=== PATIENT | female | born 1945 | race Caucasian/White ===

== ENCOUNTER 2021-01-24 05:34 | Day surgery (SDC) | payer MEDICARE, OTHER ==
[~2021-01-24] VITALS: Ht 165.1 cm; Wt 92.7 kg
[~2021-01-24 05:34] MED LIST: LOSA50TA14 PO; MAGN400T36 PO; METO50TA4 PO; MULT-642 PO; MULT-706 PO; MV-M1LOZ PO; [UNRECOGNIZED DRUG - CODE] PO
[2021-01-24 06:16] VITALS: BP 167/88
[2021-01-24] MEDS ORDERED: VIT C PO (06:16)
[2021-01-24] MEDS ORDERED: CHLORHEXIDINE 15 ML UDC MM ONE (06:30)
[2021-01-24] MEDS ORDERED: LACTATED RINGERS 1,000 ML IV SCH (06:30)
[2021-01-24] MEDS ORDERED: LIDOCAINE/PF 1%, 30ML ONE (06:51)
[2021-01-24] MEDS ORDERED: EPINEPHRINE 1 MG/ML, 1ML ONE (06:51)
[2021-01-24] MEDS ORDERED: FENTANYL PF 250 MCG/5ML ONE (07:02)
[2021-01-24] MEDS ORDERED: PROPOFOL 50 ML ONE (07:14)
[2021-01-24] MEDS ORDERED: HALOPERIDOL 5 MG/ML IV PRN (07:30)
[2021-01-24] MEDS ORDERED: EPHEDRINE 50 MG/ML, 1ML IVPush PRN (07:30)
[2021-01-24] MEDS ORDERED: MEPERIDINE/PF 25MG/0.5ML IVPush PRN (07:30)
[2021-01-24] MEDS ORDERED: FENTANYL PF 100 MCG/2ML IV PRN (07:30)
[2021-01-24] MEDS ORDERED: LABETALOL 5MG/ML, 20ML IV PRN (07:30)
[2021-01-24] MEDS ORDERED: ACETAMINOPHEN 325 MG TABLET PO PRN (07:30)
[2021-01-24] MEDS ORDERED: hydrALAzine 20 MG/ML, 1ML IV PRN (07:30)
[2021-01-24] MEDS ORDERED: HYDROmorphone 1 MG/ML, 1ML INJ IVPush PRN (07:30)
[2021-01-24] MEDS ORDERED: METHOCARBAMOL 1,000 MG in DEXTROSE 5% 100 ML IV PRN (07:30)
[2021-01-24] MEDS ORDERED: OXYcodone 5 MG/5 ML ORAL.SOL UDC PO PRN (07:30)
[2021-01-24] MEDS ORDERED: LORazepam 2 MG/ML, 1ML IVPush PRN (07:30)
[2021-01-24] MEDS ORDERED: PROMETHAZINE 25 MG/ML, 1ML IVPush PRN (07:30)
[2021-01-24] MEDS ORDERED: ONDANSETRON 2MG/ML, 2ML IVPush PRN (07:30)
[2021-01-24] MEDS ORDERED: OXYcodone 5 MG/5 ML ORAL.SOL UDC ONE (08:02)
[2021-01-24] MEDS ORDERED: ACETAMINOPHEN 650 MG/20.3 ML UDC ONE (08:02)
[2021-01-24] MEDS ORDERED: FENTANYL PF 100 MCG/2ML ONE (08:02)
[2021-01-24] MEDS ORDERED: KETOROLAC 30 MG/1 ML ONE (16:26)
[2021-01-24] MEDS ORDERED: ONDANSETRON 2MG/ML, 2ML ONE (16:26)
[2021-01-24] MEDS ORDERED: PROPOFOL 10 MG/ML, 20ML ONE (16:26)
== END 2021-01-24 10:00 | disposition home or self-care (01) ==
LOC: OUT 05:34
PROVIDERS: ATTEND Obstetrics & Gynecology Gynecology
DX: N95.0 Postmenopausal bleeding (principal); N84.0 Polyp of corpus uteri; N39.3 Stress incontinence (female) (male); I10 Essential (primary) hypertension; Z79.899 Other long term (current) drug therapy; Z88.0 Allergy status to penicillin
CPT/HCPCS: 58558; 88305; J0171; J1885; J2405; J2704; J3010; J7120